=== PATIENT | female | born 1975 | race Caucasian/White ===

== ENCOUNTER 2019-06-11 17:50 | Emergency (ER) | payer BC ==
[~2019-06-11] VITALS: Ht 172.7 cm; Wt 77.3 kg
[2019-06-11 17:57] VITALS: Ht 172.7 cm; Wt 77.3 kg
[2019-06-11] MEDS ORDERED: VIBRAMYCIN 100100 MG PO (18:31)
[2019-06-11 19:11] VITALS: BP 128/77
== END 2019-06-11 19:13 | disposition home or self-care (01) ==
LOC: D.ER 17:50
DX: L03.113 Cellulitis of right upper limb (principal); W57.XXXA Bitten or stung by nonvenomous insect and other nonvenomous arthropods, initial encounter; Y93.9 Activity, unspecified; Y92.9 Unspecified place or not applicable